=== PATIENT | female | born 1985 | race Two or more races ===

== ENCOUNTER 2023-05-18 16:36 | Emergency (ER) | payer OTHER, SELFPAY ==
--- NOTE | ~2023-05-18 | XR_ITS ---
EXAMINATION: XR CHEST CLINICAL INFORMATION: Cough COMPARISON: None available. TECHNIQUE: Frontal view of the chest was obtained. FINDINGS: No significant abnormality is noted involving the heart, lungs, mediastinum, bony thorax or soft tissues. XR/XR chest 1V IMPRESSION: Unremarkable chest examination.
[2023-05-18 17:02] VITALS: BP 140/102; PULSE 94; RESP 17; TEMP 36.9; O2SAT 95; BMI 40.7
--- NOTE | 2023-05-18 17:02 | ED_ITS ---
HPI - General Adult General Chief complaint: Upper Respiratory Symptoms Stated complaint: Flu like symptoms Time Seen by Provider: 05/18/23 18:26 Source: patient Mode of arrival: ambulatory Limitations: no limitations History of Present Illness HPI narrative: Patient is a 37year old female c/o URI sx; cough, nasal congestion, sore throat, body aches and fatigue x5 days. Cough is progressively worsening and is pro ductive. Making sleep at night difficult. Denies fevers, cills, SOB, CP, N/V/D. Her girlfriend is ill with similar symptoms also. Related Data Previous Rx's Medication Instructions Recorded azithromycin 250 mg tablet See Rx Instructions PO .COMPLEX #6 05/18/23 tabs hydrocodone-homatropine 5 mg-1.5 5 ml PO Q4-6H PRN cough #200 mL 05/18/23 mg/5 mL (5 mL) oral syrup (Hycodan) Allergies Allergy/AdvReac Type Severity Reaction Status Date / Time sulfamethoxazole Allergy Mild NAUSEA Unverified 04/06/20 15:46 [From BACTRIM] trimethoprim [From BACTRIM] Allergy Mild NAUSEA Unverified 04/06/20 15:46 Review of Systems Review of Systems: Yes all other systems are reviewed and are negative [facility] Past Medical History Attestation statement: The following information was validated with the patient. Source: old records reviewed Social History Social History Advance Directives: No Physical Exam ED Vital Signs: Vital Signs - 24 hr 05/18/23 17:02 Temperature 98.4 F Pulse Rate 94 Respiratory Rate 17 Blood Pressure 140/102 H Pulse Oximetry 95 Oxygen Delivery Method Room Air BMI result Body Mass Index 40.7 Appearance: Alert.?Oriented to person, place and time. No acute distress.?Normal affect. Eyes: Pupils equal, round and reactive to light.? ENT: Pharynx erytheematous, no exudates or hypertrophy. Uvula midline. No trimsus. No drooling.??TM normal bilaterally Neck: Normal inspection.? Neck supple.??no cervical lymphadenopathy CVS: Heart sounds normal. Normal heart rate and rhythm.? Pulses normal.?? Respiratory: No respiratory distress.? Lung sounds clear to auscultation bilaterally?? Abdomen: Soft and non-tender. Normoactive bowel sounds.? Skin: Skin warm and dry.? Normal skin color.? Extremities: No lower extremity edema.? Neuro: Moves all extremities spontaneously. Sensation intact bilaterally. Ambulates with normal steady gait. Course Course Course Narrative: This is an RME: Additional HPI, ROS, PE not included below will be deferred to primary provider. 37 year old female presents w/ cough, congestion, malaise, faitgue, body aches and pain X 3 days. Family sick w/ similar sx. Plan- labs, ekg, cxr Medical Decision Making Medical Decision Making MDM Narrative: Patient is a 37y.o. F, presenting with URI syptoms progressively worsening. She appears fatigued at the tie of y exam, no respiratory distress, febrile without tachycardia tachypnea or hypoxia. speaks clear full sentences. Tolerating oral intake. Exam not consistent with peritonsillar or retropharyngeal abscess, no eningismus, lower suspicion for pneumona. suspect bronchitis as etiology for cough in the setting of recent viral etiology. Discussed conservative treatment, provided prescription for hycodan, advised outpatient f/u with PCP, reviewed reasons to return to ED. Stable for discharge. Differential Diagnosis Differential Diagnoses: The differential diagnosis associated with the presentation includes (as noted above) Lab Data [facility] Lab Attestation statement: I reviewed the patient's lab results. (negative viral studies) Labs: Lab Results 05/18/23 Range/Units 16:44 COVID-19 (XIOMY) Negative (Negative) COVID-19 Clin Com See Note Influenza Type A (YOON) Negative (Negative) Influenza Type B (YOON) Negative (Negative) Influenza A & B Note See Note Independent Historian Clinical information obtained from an independent historian. History obtained from or confirmed by: Spouse (confirms history) External Record Review External record reviewed: Other ([facility], no conflicts to hycodan) Tests considered The following testing was considered but not selected: considered XR chest, low clinical suspicion pneumonia, XR deferred Prescription Management I considered prescription management with: Antibiotic and Other (antitussive) Discharge Plan Discharge Clinical Impression: Bronchitis Patient Disposition: Home, Self-Care Instructions: Acute Bronchitis (ED) Prescriptions: New azithromycin 250 mg tablet See Rx Instructions .ROUTE .COMPLEX Qty: 6 0RF Rx Instructions: For 250 mg dose pack: take 500 mg today (day 1), then 250 mg for 4 days (days 2-5) hydrocodone-homatropine [Hycodan] 5-1.5 mg/5 mL (5 mL) syrup 5 ml PO Q4-6H PRN (Reason: cough) Qty: 200 0RF Rx Instructions: Partial Fill upon patient request. Referrals: ED Physician,Generic [Physician] - Stand Alone Forms: Work/School Release Interventions: ED Discharge Assessment Last Done: 05/18/23 20:06 Discharge Date/Time: 05/18/23 20:07
--- NOTE | 2023-05-18 17:03 | ECG_ITS ---
Test Reason : CHEST PAIN Blood Pressure : / mmHG Vent. Rate : 093 BPM Atrial Rate : 093 BPM P-R Int : 132 ms QRS Dur : 082 ms QT Int : 352 ms P-R-T Axes : 028 026 000 degrees QTc Int : 437 ms Normal sinus rhythm Normal ECG No previous ECGs available Referred By: Cayetano Dinh Electronically Signed By:DIPTI MARCH MD
[2023-05-18 17:17] LABS: COVID-19 Test Negative (Negative); IDNOW Serial# 08D9AD1C; IDNOW Serial# BCCEAD1C; Influenza A Negative (Negative); Influenza B2 Negative (Negative)
== END 2023-05-18 20:07 | disposition home or self-care (01) ==
PROVIDERS: Physician Assistant; Emergency Provider Internal Medicine
DX: J40 Bronchitis, not specified as acute or chronic (principal); R05.9 Cough, unspecified; R53.83 Other fatigue; M79.10 Myalgia, unspecified site; Z11.52 Encounter for screening for COVID-19; Z20.822 Contact with and (suspected) exposure to COVID-19
CPT/HCPCS: 71045; 87502; 87635; 93005; 99283